=== PATIENT | male | born 1990 | race Two or more races ===

== ENCOUNTER 2016-04-05 21:10 | Emergency (ER) | payer OTHER ==
[2016-04-05] MEDS ORDERED: RANITIDINE 50 MG/2 ML VIAL IV ONE (21:27)
[2016-04-05] MEDS ORDERED: methylPREDNISolone SOD SUCC 125 MG/2 ML VIAL IVP ONE (21:27)
[2016-04-05] MEDS ORDERED: NS 1,000 ML IV ONE (21:27)
[2016-04-05] MEDS ORDERED: FAMOTIDINE 20 MG/2 ML SDV ONE (21:30)
[2016-04-05] MEDS ORDERED: FAMOTIDINE 20 MG/2 ML SDV IVP ONE (21:42)
[2016-04-05 22:15] VITALS: PULSE 60; RESP 12
[2016-04-05] MEDS ORDERED: ALBUTEROL INH PREPACK MDI TAKEHOME ONE ×2 (22:35→22:58)
--- NOTE | 2016-04-05 22:52 | EDPHY ---
H & P Time Seen by Provider: 04/05/16 21:30 HPI/ROS: HPI Allergic reaction. 25-year-old male by private vehicle with his girlfriend. This patient reports that at approximately 7:00 p.m. he ate a chip with some fish sauce on it. He reports that he then went to a swimming pool to swim with his girlfriend. He reports that after he got out of the water he noticed hives over his chest, arms and some swelling around his eyelids. He denies any difficulty breathing or wheezing. No sensation of swelling in his throat or difficulty swallowing. No other complaints. ROS: Constitutional: No fever, no chills. No weakness. Eyes: No discharge. No changes in vision. ENT: No sore throat. No nasal congestion or rhinorrhea. Respiratory: No cough. No shortness of breath. Cardiac: No chest pain, no palpitations. Gastrointestinal: No abdominal pain, no vomiting, no diarrhea. Genitourinary: No hematuria. No dysuria or increased frequency with urination. Musculoskeletal: No back pain. No neck pain. No myalgias or arthralgias. Skin: As above. Neurological: No headache. No focal weakness or altered sensation. Past medical history: Asthma for which she uses albuterol. Social history: Here with his girlfriend. Nonsmoker. Physical Exam: General Appearance: Alert, no distress. This patient is responding to questions appropriately and in full sentences. This patient appears well- hydrated and well-nourished. Eyes: Pupils equal and round no pallor or injection. No lid edema, erythema or injection. Mild angioedema around the upper lateral eyelids. ENT, Mouth: Mucous membranes are moist. The pharyngeal tissues are unremarkable. No edema or swelling. No asymmetry suggestive of abscess. No erythema or exudates. No voice changes. No stridor on auscultation of his neck. Respiratory: There are no retractions, lungs are clear to auscultation with good air movement bilaterally. Cardiovascular: Regular rate and rhythm. No murmur. Neurological: Motor sensory function is grossly intact. Cranial nerves are normal. Gait is normal. Skin: Warm and dry. Diffuse erythematous hives which are blanching, maculopapular in nature over chest and upper extremities. Musculoskeletal: Neck is supple and nontender. Extremities are symmetrical. All joints range without pain or impingement. Psychiatric: No agitation. No depression. Database: EKG: Imaging: Procedures: Emergency department course: IV placed. He was given 125 mg of IV Solu-Medrol, 50 mg of IV Benadryl and 20 mg of IV Pepcid. 10:50 p.m., the patient was re-evaluated. His hives have completely resolved. Very subtle angioedema involving the upper lateral eyelids. Repeat pulmonary exam is clear on auscultation bilaterally. Repeat pharyngeal exam is unremarkable and unchanged from prior. No stridor on auscultation of his neck. He feels comfortable going home and I feel he is safe for discharge. Follow- up and return to emergency department precautions have been discussed with him. I will prescribe him Benadryl, Pepcid and a short course of prednisone to be taken over the next 2-3 days. All of his questions were answered. He was discharged in good condition. Differential Diagnosis: The differential diagnosis on this patient includes but is not limited to allergic reaction. This represents a partial list of diagnoses considered. These considerations are based on history, physical exam, past history, reassessment and diagnostic testing. Smoking Status: Never smoked Constitutional: Initial Vital Signs Temperature (C) 36.3 C 04/05/16 21:14 Heart Rate 75 04/05/16 21:14 Respiratory Rate 16 04/05/16 21:14 Blood Pressure 119/71 04/05/16 21:14 O2 Sat (%) 93 04/05/16 21:14 O2 Delivery Mode Room Air Allergies/Adverse Reactions: No Known Allergies Allergy (Unverified 04/05/16 21:13) Home Medications: Medication Instructions Recorded Albuterol 04/05/16 Famotidine [Pepcid] 20 mg PO BID #7 tab 04/05/16 diphenhydrAMINE [Benadryl 50 MG 50 mg PO Q6HRS #7 cap 04/05/16 (*)] predniSONE [prednisone 20mg (RX)] 60 mg PO DAILY #9 tab 04/05/16 Medical Decision Making - Data Points Medications Given: Discontinued Medications Albuterol Sulfate (Proventil Inh Prepack) 1 mdi TAKEMARISSA SORENSEN ONE Stop: 04/05/16 22:59 Last Admin: 04/05/16 23:13 Dose: 1 mdi Diphenhydramine HCl (Benadryl Injection) 50 mg IVP EDNOW ONE Stop: 04/05/16 21:28 Last Admin: 04/05/16 21:37 Dose: 25 mg Famotidine (Pepcid) 20 mg IVP EDNOW ONE Stop: 04/05/16 21:43 Last Admin: 04/05/16 21:41 Dose: 20 mg Sodium Chloride (Ns) 1,000 mls @ 0 mls/hr IV EDNOW ONE PRN Reason: Wide Open Stop: 04/05/16 21:28 Last Admin: 04/05/16 21:35 Dose: 1,000 mls Methylprednisolone Sodium Succinate (Solu-Medrol) 125 mg IVP EDNOW ONE Stop: 04/05/16 21:28 Last Admin: 04/05/16 21:38 Dose: 125 mg Departure - Departure Disposition: Home, Routine, Self-Care Clinical Impression: Allergic reaction Condition: Good Instructions: Albuterol (By breathing), General Allergic Reaction (ED) Additional Instructions: Read and follow provided instructions. Follow-up with your primary care physician on Thursday for re-evaluation. Take medication as prescribed. Return to the emergency department for return of rash, facial swelling, sensation of swelling in your throat, difficulty breathing or other serious concerns. Referrals: NONE *PRIMARY CARE P,. [Primary Care Provider] - As per Instructions Prescriptions: diphenhydrAMINE [Benadryl 50 MG (*)] 50 mg PO Q6HRS #7 cap Famotidine [Pepcid] 20 mg PO BID #7 tab predniSONE [prednisone 20mg (RX)] 60 mg PO DAILY #9 tab
[2016-04-05 23:14] VITALS: BP 94/64; TEMP 98.1; O2SAT 96
== END 2016-04-05 23:12 | disposition home or self-care (01) ==
DX: T78.40XA Allergy, unspecified, initial encounter (principal); J45.909 Unspecified asthma, uncomplicated
CPT/HCPCS: 96374; J1200; J2780

== ENCOUNTER 2017-07-05 03:48 | Emergency (ER) | payer OTHER ==
--- NOTE | 2017-07-05 04:11 | EDPHY ---
H & P Stated Complaint: HEMATURIA/FAINTED SEEING BLOOD Time Seen by Provider: 07/05/17 04:11 HPI/ROS: HPI CHIEF COMPLAINT: Possible blood in ejaculation. And then syncope. HISTORY OF PRESENT ILLNESS: This is a very pleasant 26-year-old male he is otherwise healthy, he had intercourse with his girlfriend this evening it was vaginal, he did not use a condom, he had vaginal intercourse, he states in his ejaculation he noticed some redness which she thought was blood. He got up to use the bathroom to take a shower and to urinate any states that he may have passed 2 small clots. Patient denies any dysuria or testicular pain or penile trauma. Denies any swelling or pain. When he saw the bloody started feel very lightheaded and woozy. He states he thinks he passed out. Denies any chest pain or shortness of breath denies palpitations. Denies fever. He otherwise feels fine at this time. Due to the feeling like he was going to pass out and blood in his ejaculate she decided come the emergency room for evaluation. Past Medical History: Denies medical history Past Surgical History: Denies surgical history Social History: Denies daily use of drugs alcohol tobacco. Family History: Noncontributory ROS REVIEW OF SYSTEMS: A comprehensive 10 point review of systems is otherwise negative aside from elements mentioned in the history of present illness. Exam Constitutional appears well nontoxic no acute distress, triage nursing summary reviewed, vital signs reviewed, awake/alert. Eyes normal conjunctivae and sclera, EOMI, PERRLA. HENT normal inspection, atraumatic, moist mucus membranes, no epistaxis, neck supple/ no meningismus, no raccoon eyes. Respiratory clear to auscultation bilaterally, normal breath sounds, no respiratory distress, no wheezing. Cardiovascular rate normal, regular rhythm, no murmur, no edema, distal pulses normal. Gastrointestinal soft, non-tender, no rebound, no guarding, normal bowel sounds, no distension, no pulsatile mass. Genitourinary no CVA tenderness. Musculoskeletal no midline vertebral tenderness, full range of motion, no calf swelling, no tenderness of extremities, no meningismus, good pulses, neurovascularly intact. Skin pink, warm, & dry, no rash, skin atraumatic. Neurologic awake, alert and oriented x 3, AAOx3, moves all 4 extremities equally, motor intact, sensory intact, CN II-XII intact, normal cerebellar, normal vision, normal speech. Psychiatric normal mood/affect. Heme/Lymph/Immune no lymphadenopathy. Differential Diagnosis: Includes but is not limited to in a particular order UTI, blood in a jacket, vasovagal syncope, cardiac arrhythmia Medical Decision Making: Plan for this patient check urinalysis for blood and infection, he denies any significant pain or swelling to his . Will additionally obtain EKG. Re-evaluation: EKG interpretation by me on record in [employer] system. Impression time of EKG 4:23 a.m., this is a EKG that shows sinus rhythm rate of 52, no signs of acute ischemia. No significant T-wave abnormalities no prolonged intervals. No significant ST elevation. Unremarkable EKG. EKG was performed for syncope. Patient's urinalysis shows an abnormal amount of blood. He has no flank pain or abdominal pain. I have sent a urine culture I will start him on Keflex in case this is infection. Additionally I do recommend he follows up with Urology for hematuria. I have discussed this with him. Additionally for syncope at the site of blood his EKG is unremarkable no signs of cardiac arrhythmia. He understands stay well-hydrated drink lots of fluids follow up with Urology. Keflex as prescribed. Urine cultures been sent. Patient understands to follow up with Urology drink lots of fluids antibiotic as prescribed and return if worsening symptoms. Source: Patient - Personal History Current Tetanus Diphtheria and Acellular Pertussis (TDAP): No - Medical/Surgical History Hx Asthma: Yes Hx Chronic Respiratory Disease: No Hx Diabetes: No Hx Cardiac Disease: No Hx Renal Disease: No Hx Cirrhosis: No Hx Alcoholism: No Hx HIV/AIDS: No Hx Splenectomy or Spleen Trauma: No Other PMH: DENIES - Social History Smoking Status: Never smoked Constitutional: Initial Vital Signs Temperature (C) 36.7 C 07/05/17 03:56 Heart Rate 60 07/05/17 03:56 Respiratory Rate 16 07/05/17 03:56 Blood Pressure 110/69 07/05/17 03:56 O2 Sat (%) 99 07/05/17 03:56 O2 Delivery Mode Room Air Allergies/Adverse Reactions: shellfish derived Allergy (Verified 07/05/17 03:56) Home Medications: Medication Instructions Recorded Albuterol 04/05/16 Cephalexin [Keflex] 500 mg PO Q6H #28 cap 07/05/17 Medical Decision Making - Data Points Laboratory Results: 07/05/17 05:10 Urine Color YELLOW Urine Appearance CLEAR Urine pH 5.0 (5.0-7.5) Ur Specific [place] 1.028 (1.002-1.030) Urine Protein NEGATIVE (NEGATIVE) Urine Ketones NEGATIVE (NEGATIVE) Urine Blood 2+ H (NEGATIVE) Urine Nitrate NEGATIVE (NEGATIVE) Urine Bilirubin NEGATIVE (NEGATIVE) Urine Urobilinogen 2.0 EU H EU (0.2-1.0) Ur Leukocyte Esterase NEGATIVE (NEGATIVE) Urine RBC 25-50 /hpf H /hpf (0-3) Urine WBC 1-3 /hpf /hpf (0-3) Ur Epithelial Cells NONE SEEN /lpf /lpf (NONE-1+) Urine Mucus 1+ /lpf /lpf (NONE-1+) Urine Glucose NEGATIVE (NEGATIVE) Medications Given: Discontinued Medications Cephalexin (Keflex 500 Mg Prepack#4) 1 btl TAKEHOME EDNOW ONE PRN Reason: Protocol Stop: 07/05/17 06:13 Last Admin: 07/05/17 06:20 Dose: 1 btl Cephalexin HCl (Keflex) 500 mg PO EDNOW ONE PRN Reason: Protocol Stop: 07/05/17 06:13 Last Admin: 07/05/17 06:20 Dose: 500 mg Departure - Departure Disposition: Home, Routine, Self-Care Clinical Impression: Syncope Qualifiers: Syncope type: vasovagal syncope Qualified Code(s): R55 - Syncope and collapse Hematuria Qualifiers: Hematuria type: unspecified type Qualified Code(s): R31.9 - Hematuria, unspecified Condition: Good Instructions: Hematuria (ED) Additional Instructions: 1. Stay well-hydrated drink lots of fluids. 2. Return emergency room if you have worsening symptoms includes abdominal pain , flank pain, vomiting or fever. 3. Please follow up with Urology call there to make a follow-up appointment about blood in your urine. 4. Take antibiotics as prescribed. Referrals: NONE *PRIMARY CARE P,. [Primary Care Provider] - As per Instructions Augusto Braun MD [Medical Doctor] - As per Instructions Prescriptions: Cephalexin [Keflex] 500 mg PO Q6H #28 cap
--- NOTE | 2017-07-05 05:11 | CPEKG ---
Heart Rate: 52 RR Interval: 1154 P-R Interval: 180 QRSD Interval: 86 QT Interval: 424 QTC Interval: 395 P [place]: 73 QRS [place]: 57 T Wave [place]: 55 EKG Severity - NORMAL ECG - EKG Impression: SINUS RHYTHM EKG Impression: ST ELEV, PROBABLE NORMAL EARLY REPOL PATTERN Electronically Signed By: Rob Floyd 05-Jul-2017 06:48:32
[2017-07-05] MEDS ORDERED: CEPHALEXIN 500MG PREPACK#4 BTL TAKEHOME ONE (06:12)
[2017-07-05] MEDS ORDERED: CEPHALEXIN 500 MG CAP PO ONE (06:12)
[2017-07-05 08:16] VITALS: BP 109/69
== END 2017-07-05 08:35 | disposition home or self-care (01) ==
DX: R55 Syncope and collapse (principal); R31.9 Hematuria, unspecified; J45.909 Unspecified asthma, uncomplicated